=== PATIENT | female | born 1990 | race Caucasian/White ===

== ENCOUNTER 2016-11-14 18:13 | Emergency (ER) | payer OTHER ==
[2016-02-02 23:26] VITALS: BP 125/69
[~2016-11-14 18:13] MED LIST: PNV1TABL25 PO
--- NOTE | 2016-11-14 18:30 | PHYS DOC ---
Past History Past Medical History: No Pertinent History, Other Past Surgical History: No Surgical History, Other Smoking: Non-smoker Alcohol Use: None Drug Use: None Adult General HPI HPI Patient is a 26 year old F who presents with labor pains and the possible UTI and she is approximately 32 weeks . Patient asked if we had OB services and was told no therefore she left without being seen because she was going to drive herself to for further evaluation and management. I did not evaluate this patient nor did I see the patient. All risks were explained to the patient and all efforts were attempted by the nursing staff to prevent her from leaving. The nurse explained that she can go into labor during transport to and have a fatal outcome. Patient understood all risks and left without being seen. Allergies Allergies Allergies Coded Allergies Type Severity Reaction Last Updated Verified No Known Drug Allergies 07/08/14 No EKG EKG [] Radiology/Procedures Radiology/Procedures [] Course & Med Decision Making Course & Med Decision Making Pertinent Labs and Imaging studies reviewed. (See chart for details) [] Dragon Disclaimer Dragon Disclaimer This chart was dictated in whole or in part using Voice Recognition software in a busy, high-work load, and often noisy Emergency Department environment. It may contain unintended and wholly unrecognized errors or omissions. Departure Departure: Impression: Primary Impression: Pain during labor Disposition: 07 AGAINST MEDICAL ADVICE Condition: STABLE Referrals: PCP,NO (PCP) CHANELL ROBERT DO Nov 14, 2016 18:30
== END 2016-11-14 18:25 | disposition left against medical advice (07) ==
LOC: ER 18:13
DX: O60.03 Preterm labor without delivery, third trimester (principal); Z3A.32 32 weeks gestation of pregnancy
CPT/HCPCS: 99281